=== PATIENT | male | born 1945 | race Caucasian/White ===

== ENCOUNTER 2018-01-30 15:36 | Emergency (ER) | payer BC, OTHER ==
[2018-01-30 15:45] VITALS: BP 135/117
--- NOTE | 2018-01-30 18:25 | EDM.PDOC ---
ED HPI GENERAL MEDICAL PROBLEM - General Chief Complaint: Lower Extremity Injury/Pain Stated Complaint: FELL OFF 8 FT LADDER UPPER LEG INJURY Time Seen by Provider: 01/30/18 16:22 Source of Information: Reports: Patient, RN Notes Reviewed - History of Present Illness INITIAL COMMENTS - FREE TEXT/NARRATIVE: 72 year old male injured L posterior upper leg a few hours ago. Fell off of a step ladder reaching and moving an object. Not sure if there was a blow, think it was more of a pulling or stretch injury. He can bear weight but severe pain posterior mid hamstring with motion of leg. No pain if he just stands still. no other pain or injury. On coumadin for chronic a fib. Left Upper Leg Pain Score (Numeric/FACES): 8 - Related Data Allergies Allergy/AdvReac Type Severity Reaction Status Date / Time No Known Allergies Allergy Verified 09/08/16 13:14 Home Meds: Home Meds amLODIPine [Norvasc] 5 mg PO DAILY 09/08/16 [History] Warfarin [Coumadin] 5 mg PO DAILY 01/30/18 [History] HCTZ/Telmisartan [Micardis HCTZ 25-80 MG] 1 tab PO DAILY 01/31/18 [History] Labetalol [Normodyne] 100 mg PO BID 01/31/18 [History] Rosuvastatin [Crestor] 10 mg PO DAILY 01/31/18 [History] Past Medical History Cardiovascular History: Reports: Arrhythmia, High Cholesterol, Hypertension - Past Surgical History GI Surgical History: Reports: Hernia Repair/Other Social & Family History - Tobacco Use Smoking Status *Q: Never Smoker Second Hand Smoke Exposure: No - Recreational Drug Use Recreational Drug Use: No Review of Systems - Review of Systems Review Of Systems: See Below Eyes: Reports: No Symptoms Mouth/Throat: Reports: No Symptoms Respiratory: Denies: Shortness of Breath, Pleuritic Chest Pain Cardiovascular: Denies: Chest Pain GI/Abdominal: Denies: Abdominal Pain, Nausea, Vomiting Musculoskeletal: Reports: Leg Pain (L posteior hamstring) Skin: Reports: No Symptoms. Denies: Bruising Neurological: Denies: Numbness, Tingling ED EXAM, GENERAL - Physical Exam Exam: See Below General Appearance: Alert, Moderate Distress Head: Atraumatic Neck: Supple, Full Range of Motion Respiratory/Chest: No Respiratory Distress, Lungs Clear Cardiovascular: Regular Rate, Rhythm Back Exam: No: Paraspinal Tenderness, Vertebral Tenderness Extremities: No: Leg Pain (tender L posterior mid hamstring, no bruising or swelling, no bony tenderness) Neurological: Alert, Oriented, No Motor/Sensory Deficits Skin Exam: Warm, Dry, Normal Color. No: Ecchymosis Course - Vital Signs Last Recorded V/S: Last Vital Signs Temp 98.9 F 01/30/18 15:42 Pulse 107 H 01/30/18 15:42 Resp 17 01/30/18 15:42 BP 135/117 H 01/30/18 15:42 Pulse Ox 94 L 01/30/18 15:42 - Orders/Labs/Meds Labs: Laboratory Tests 01/30/18 01/30/18 Range/Units 16:52 16:52 WBC 8.52 (4.23-9.07) K/mm3 RBC 5.00 (4.63-6.08) M/mm3 Hgb 14.8 (13.7-17.5) gm/L Hct 46.1 (40.1-51.0) % MCV 92.2 (79.0-92.2) fl MCH 29.6 (25.7-32.2) pg MCHC 32.1 L (32.2-35.5) g/dl RDW Std Deviation 47.3 H (35.1-43.9) fL Plt Count 171 (163-337) K/mm3 MPV 10.3 (9.4-12.3) fl Neut % (Auto) 78.4 H (34.0-67.9) % Lymph % (Auto) 11.0 L (21.8-53.1) % [place] % (Auto) 8.1 (5.3-12.2) % Eos % (Auto) 1.8 (0.8-7.0) Baso % (Auto) 0.5 (0.1-1.2) % Neut # (Auto) 6.68 H (1.78-5.38) K/mm3 Lymph # (Auto) 0.94 L (1.32-3.57) K/mm3 [place] # (Auto) 0.69 (0.30-0.82) K/mm3 Eos # (Auto) 0.15 (0.04-0.54) K/mm3 Baso # (Auto) 0.04 (0.01-0.08) K/mm3 PT 25.3 H (8.0-13.0) SECONDS INR 2.34 - Re-Assessments/Exams Free Text/Narrative Re-Assessment/Exam: 02/02/18 10:34 can stand with not pain, no bone pain, will hold off on Xrays, INR as documented. Will order MRI do be done early next week. Departure - Departure Time of Disposition: 18:20 Disposition: Home, Self-Care 01 Condition: Fair Clinical Impression: Muscle tear - Discharge Information Referrals: Chuck Ricketts MD [Primary Care Provider] - Forms: ED Department Discharge Additional Instructions: Babar Wrap, ice packs and elevation as best you can, tylenol 2 to 3 times daily as needed for pain, MRI L leg, Follow up with Dr Ricketts after MRI has been done for results and for reevaluation.
== END 2018-01-30 18:30 | disposition home or self-care (01) ==
LOC: JD.ED 15:36
DX: S76.312A Strain of muscle, fascia and tendon of the posterior muscle group at thigh level, left thigh, initial encounter (principal); Z79.01 Long term (current) use of anticoagulants; Z79.899 Other long term (current) drug therapy; W11.XXXA Fall on and from ladder, initial encounter
CPT/HCPCS: 36415; 85025; 85610; 99282; 99283